=== PATIENT | male | born 1985 | race Caucasian/White ===

== ENCOUNTER 2023-01-22 13:42 | Outpatient (REF) | payer OTHER, SELFPAY ==
[2023-01-22 14:39] LABS: Amphetamine Screen Urine Not Detected (Not Detect); Barbiturates, Urine Not Detected (Not Detect); Benzodiazepines Screen Urine Not Detected (Not Detect); Cannabinoid Screen Urine Not Detected (Not Detect); Cocaine Screen Urine POSITIVE (Not Detect); Fentanyl, urine Not Detected (Not Detect); Opiate Screen Urine Not Detected (Not Detect); Phencyclidine Screen Urine Not Detected (Not Detect)
[2023-01-22 14:54] LABS: Alanine Aminotransferase 54 U/L (0-40); Albumin Level 4.8 g/dL (3.5-5.0); Alkaline Phosphatase 74 U/L (39-117); Anion Gap 14 (12-20); Aspartate Amino Transferase 24 U/L (5-37); Bilirubin Total 0.3 mg/dL (0.0-1.0); Blood Urea Nitrogen 15 mg/dL (9-16); Calcium 9.8 mg/dL (8.4-10.2); Carbon Dioxide 28 mmol/L (22-29); Chloride 106 mmol/L (96-108); Estimated Glomerular Filt Rate > 60; Ethanol < 10 mg/dL; Gamma Glutamyl Transpeptidase 57 U/L (11-51); Glucose Random 106 mg/dL (60-115); Potassium 4.5 mmol/L (3.3-5.1); Sodium 143 mmol/L (135-145); Total Protein 7.6 g/dL (6.5-8.0)
== END 2023-01-22 13:43 | disposition home or self-care (01) ==
LOC: HO.LAB 13:42
PROVIDERS: Visit Provider Nurse Practitioner Psychiatric/Mental Health
DX: F10.20 Alcohol dependence, uncomplicated (principal); F33.1 Major depressive disorder, recurrent, moderate
CPT/HCPCS: 80053; 80307; 82077; 82977; 85610

== ENCOUNTER 2023-01-30 09:00 | Outpatient (RCR) | payer OTHER, SELFPAY ==
[2023-01-19 12:04] VITALS: BP 122/80; PULSE 80; TEMP 36.9
[2023-01-19 12:07] VITALS: BMI 25.5
--- NOTE | 2023-01-19 12:36 | PC.ADMIT ---
Patient is a 37 year old male who's therapist referred him to [facility] d/t increased stresses in relation to his marriage, 2 small children ages 2-3, and work related stresses. Patient struggling with increase in ETOH use recently to cope with how he is feeling and reports drinking 5-10 ETOH nips daily. Reports he abstained from use for the past 3 months however relapsed and reports his last drink was on 01/05/23. Denied withdrawal sxs and denied any history of withdrawal sxs. Patient also reports he used cocaine over the weekend. He became tearful and stated it was, dumb for him to do this feeling guilt and shame. He stated he uses about 5 times a year. Patient reports being in [facility] 20 years ago and found it helpful. He wants to work on his sobriety, stress reduction, and sxs of depression. Patient stated he is going on short term disability from work d/t his symptoms. Patient is alert and oriented x4. Calm and cooperative. Presented with depressed mood and affect, tearful at times. Denied SI or thoughts to harm himself. Patient given a copy ofhis safety plan if needed and I reviewed the plan with him. Patient denied being on any prescription medications.
--- NOTE | 2023-01-19 13:07 | HO.PS.ADMBH ---
[facility] Date of Service: 01/19/23 Chief Complaint: anxiety,depression,AUD Sources of Information: patient interviewed, chart reviewed and crisis/core team assessment reviewed HPI Medical Problems Affecting Mental Status: No Narrative: Mr. Aguilar is a 37-year-old male, referred to [facility] by his therapist. Patient has been experiencing difficulties in his marital relationship, difficulties raising his 2 young children. Situation has caused increased symptoms of depression and anxiety, as well as increased drinking on his part, with increased arguing at home. Patient states he would like to get help in learning how to manage his emotions, as well as stop drinking alcohol. Patient reports he has felt ?out of control ?since the of his 2 children, ages 2 and 3. Describes current mood as nervous?. Was working with a psychiatric provider within the past year, she recommended stopping his medications due to his heavy daily alcohol use. He states he is no longer working with provider. Patient reports he has been drinking heavily, 5-10 nips of vodka daily. Reports last drink was on 01/05/2023. He states his explosive temper, low stress tolerance, and heavy drinking have caused problems in his life, and he is currently on leave from work, in order to focus on his own recovery. Participated in this program almost 20 years ago. Lived in [facility] program for 1 year in 2005. Has had periods of sobriety for 1 year at a time, 6 months ago he was able to stop drinking for 3 months. He is not currently attending any 12 step recovery type meetings, although he has gone to several AA meetings in the past. He reports he is not currently craving alcohol, but he has at times since stopping over the past several weeks. Reports current symptoms of feeling hopeless and helpless, poor sleep, decreased energy, poor frustration tolerance, irritability, anxiety. Denies SI/HI, AH,VH. States that he had anger issues as a child, and he feels they have resurfaced in his marriage. Treated for ADD outpatient here in 1995, history of becoming explosive when angry as a child. Denies any physical abuse states he does not harm his and children in any way physically. He is fearful however that his arguing with his spouse could possibly be affecting the children, and wishes to learn how to handle his emotions more effectively, and had a communicate calmly. He has been using edible cannabis, several times weekly. Past Psychiatric History[place] [facility] [place]. [facility] [place] as a teen, with dx ADD [facility] long-term treatment x1 year, 2005. Most recent psychiatric provider Ibis Nielson, has none currently. Therapist: LISA Karimi No IP Med trials: Latiaal, Nancy, (recently stopped by prescriber due to excessive alcohol intake),Lexapro. Medical Evaluation Reviewed: Yes [facility] Medical History No known health problems Ruptured spleen Family History: No known substance use or psychiatric issues in family history. Social History: Raised by both parents, 1 older brother, 1 younger brother. Graduated high school, college. , 2 children, ages 2 and 3. 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 Substance History: Edible cannabis, several times weekly, current. Vodka daily since age 16 or 17. Most recently was using 5-10 minutes daily, last drink to [id number]. Current cocaine use. Lived in residential treatment facility x1 year in 2005. Trauma History: none Diagnostics Vital Signs (24Hr): Vital Signs - 24 hr 01/19/23 12:04 Temperature 98.4 F Pulse Rate 80 Blood Pressure 122/80 BMI result Body Mass Index 25.5 Meds/Allergies Meds Home Medications Medication Instructions Recorded Confirmed Type No Known Home Meds 01/19/23 01/19/23 History Allergies Allergies Allergy/AdvReac Type Severity Reaction Status Date / Time aspirin [ASPIRIN] Allergy Unknown UNKNOWN Verified 01/19/23 12:04 penicillin V Allergy Unknown Unknown Verified 01/19/23 12:04 Penicillins [PENICILLINS] Allergy Unknown RASH Verified 01/19/23 12:04 Mental Status Exam Mental Status Exam Narrative: Well-developed, well-nourished male, NAD. No SI. No perceptual disturbances. No tics or tremors, no cogwheeling. Normal ambulation. Full range of affect. Able to follow conversation without difficulty. Patient Appearance: Well Grooomed and Appropriate Patient Orientation: Person, Place and Situation Level of Consciousness: Appropriate and Alert Patient Behavior: Appropriate, Anxious and Good Eye Contact Mood Description: Depressed and Anxious Affect Description: Depressed and Anxious Patient Cognition Impaired: No Ability to Follow Directions: Good Speech Pattern: Clear and Appropriate Memory Description: Intact Hallucinations: None Delusions: Not Present Thought Process: Intact Thought Content: positive for Intact Depressive Symptoms: Increased Anxiety, Crying Spells, Loss of Int. in Activity, Feelings of Worthlessness, Hopelessness, Feelings of Guilt and Unhappiness Judgement: Fair Assessment & Plan Assessment & Plan (1) Alcohol dependence, uncomplicated: Status: Acute Code(s): F10.20 - Alcohol dependence, uncomplicated Assessment and Plan: Patient has longstanding history of alcohol use disorders since age 17-18. Has been in treatment in the past. Has periods of abstinence for months at a time. Recently has been having increased consumption, feels this is related to increased stress in the home. Last drink was 01/05/2023. Has gone to several alcoholics anonymous meetings, otherwise in no current treatment. Has never tried medications for alcohol use disorder. Discussion was had regarding various medication options, including naltrexone, Campral, Antabuse. A review of each medication, including risks and benefits, side effects both small and more severe, indications of use for each medication. Patient would like to speak with his before deciding to taking medication for alcohol use at this time. Initial discussion did discuss possibility of higher level of care of treatment if indicated, as well as substance use groups here, recovery coaching. Patient did not report using other substances at this time. However, UDS was positive for cocaine today. Patient became tearful when meeting with program RN regarding this. Expresses shame and embarrassment, would like to focus on abstinence. This will be explored further with patient during subsequent visits. (2) Major depressive disorder, recurrent episode, moderate with anxious distress: Status: Acute Code(s): F33.1 - Major depressive disorder, recurrent, moderate (3) ADD (attention deficit disorder): Status: Acute Code(s): F98.8 - Other specified behavioral and emotional disorders with onset usually occurring in childhood and adolescence Assessment and Plan: per chart review, patient received treatment here as outpatient for ADD in 1995. He reports difficulty managing his emotions, angry outburst since childhood. Will provide screening tools for both bipolar disorder and ADD, to be completed by patient, and reviewed together. Plan 1. Administer screening tools. 2. Continue with current [facility] plan of care. 3. Follow-up as per protocol. Patient educated on: diagnosis, medication risk/benefits, substance abuse and therapeutic strategies Informed Consent: understands Reason for continued partial hosp. stay Substantial Risk for: rapid decompensation and med/psych decompensation Certification I certify that partial hospital treatment is medically necessary due to the symptoms and problems resulting from the patient's mental illness and the failure to treat the patient at the partial hospital level of care would likely result in the patient requiring inpatient psychiatric care which could not be prevented at a less intensive level of care. Time Spent With Patient Time: Total time managing care of this patient today __60__ minutes.
[2023-01-19 13:16] LABS: Amphetamine Screen Urine Not Detected (Not Detect); Barbiturates, Urine Not Detected (Not Detect); Benzodiazepines Screen Urine Not Detected (Not Detect); Cannabinoid Screen Urine POSITIVE (Not Detect); Cocaine Screen Urine POSITIVE (Not Detect); Fentanyl, urine Not Detected (Not Detect); Opiate Screen Urine Not Detected (Not Detect); Phencyclidine Screen Urine Not Detected (Not Detect)
--- NOTE | 2023-01-21 16:44 | P.PNPSP_ITS ---
Subjective Subjective Date of Service: 01/21/23 Reason For Visit: anxiety,depression,AUD Medical Problems Affecting Mental Status: No Interim History: Describes mood as anxiuos, depressed . No alcohol use, no cocaine use. Completed screening tools; ADHD self report scale, MDQ. No SI, feels safe. Finding groups helpful. Continues feeling overwhelmed at home with and 2 young children. Continues unsure regarding taking medications. Attending Groups: Yes Review of Systems Acute medical concerns: No Medical Review of Systems: unchanged Review of Systems Review of Systems Yes all other systems are reviewed and are negative Constitutional: Reports no additional constitutional complaints Mental Status Exam Mental Status Exam Narrative: NAD. No SI. Patient Appearance: Well Grooomed and Appropriate Patient Orientation: Person, Place and Situation Level of Consciousness: Appropriate and Alert Patient Behavior: Appropriate, Anxious and Good Eye Contact Mood Description: Depressed and Anxious Affect Description: Depressed and Anxious Patient Cognition Impaired: No Ability to Follow Directions: Good Speech Pattern: Clear and Appropriate Memory Description: Intact Hallucinations: None Delusions: Not Present Thought Process: Intact Thought Content: positive for Intact Depressive Symptoms: Increased Anxiety, Crying Spells, Loss of Int. in Activity, Feelings of Worthlessness, Hopelessness, Feelings of Guilt and Unhappiness Judgement: Fair Diagnostics Vital Signs (24Hr): BMI result Body Mass Index 25.5 Assessment & Plan Assessment & Plan (1) Alcohol dependence, uncomplicated: Status: Acute Code(s): F10.20 - Alcohol dependence, uncomplicated Assessment and Plan: Describes mood as anxiuos, depressed . Continues feeling overwhelmed at home with and 2 young children. Continues to argue with . No SI, feels safe. Finding groups helpful. No alcohol use, no cocaine use. Denies current withdrawals or cravings. Discussed use pattern in detail. Has used alcohol almost daily, and cocaine approximately 10 times per year. Completed screening tools; ADHD self report scale, MDQ. Scores on both screening tools show some sx of each disorder reveal some overlapping sx. Does acknowledge feeling irritable, starting fights with others, and getting distracted easily. Also has difficulty completing repetitive work, talking excessively in social situations, with some difficulty in getting started on tasks, wrapping up final details on projects. However, also relates some of these behaviours to times when he has been using alcohol and cocaine. Discussed differences between a substance induced mood disorder, bipolar disorder, and ADHD. Patient recalls being trialled on ritalin as a child without success (developed tics), and later Wellbutrin. Discussed various medication options, including guanfacine, clonidine, Wellbutrin, trileptal. Also discussed medications for alcohol use and cocaine use, naltrexone, campral, topomax. Discussion included indications of use, side effects both benign and more serious, as well as alternatives. He is not willing to trial any medications at this time. Patient was encouraged to discuss the medications listed with his spouse later today, as originally he stated he wanted to do this. (2) Major depressive disorder, recurrent episode, moderate with anxious distress: Status: Acute Code(s): F33.1 - Major depressive disorder, recurrent, moderate (3) ADD (attention deficit disorder): Status: Acute Code(s): F98.8 - Other specified behavioral and emotional disorders with onset usually occurring in childhood and adolescence Plan 1. Obtain labs. 2. Continue to follow current [facility] plan of care. 3. Follow-up as per protocol. Patient educated on: diagnosis, medication risk/benefits, substance abuse and therapeutic strategies Informed Consent: understands Reason for contiued partial hosp. stay Substantial Risk for: inability to function, rapid decompensation and med/psych decompensation Certification I certify that partial hospital treatment is medically necessary due to the symptoms and problems resulting from the patient's mental illness and the failure to treat the patient at the partial hospital level of care would likely result in the patient requiring inpatient psychiatric care which could not be prevented at a less intensive level of care. Total time managing care of this patient today ___20_ minutes. Discharge Plan Discharge Attending provider: Naif Esparza Medications: No Action No Known Home Meds Stand Alone Forms: Patient Portal Discharge page Patient Education: Naltrexone (By mouth)
--- NOTE | 2023-01-23 08:30 | HO.PHP ---
The clients case was reviewed and opened in clinical team
--- NOTE | 2023-01-23 13:00 | HO.PHP ---
I met with Yuniel to discuss his positive screen for cocaine and explore plans for moving forward. He became tearful and admits to having used intermittently. He states that he hasn't used in a couple of days. We explored reasons he uses eg feeling overwhelmed and needing a break , energy, and explored how his use impacts his life. He stated that he knows that his use id s the major reason that he is not helping his and that their communication is poor. He states that she does not know that he uses and he feels guilt. He states that he believes that if he continues to act the way he is they will get . We explored what he can control now. I asked him if he wanted a referral for a substance program. He states that he does have an intake scheduled next . He wants to stay here in [place] and focus on relapse prevention during the groups.
--- NOTE | 2023-01-28 12:56 | HO.PHPPROGNO ---
Subjective Subjective Date of Service: 01/28/23 Reason For Visit: anxiety,depression,AUD Medical Problems Affecting Mental Status: No Interim History: Continues with anxiuos, depressed mood. Tearful. Has been using cocaine daily for past 3 years. Wants referral to substance use treatment. Willing to try medication for cocaine cravings. Remains abstinent from alcohol, reports last drink was 01/05/23. No SI, no safety concerns. Medication Compliance: Yes Attending Groups: Yes Review of Systems Acute medical concerns: No Medical Review of Systems: unchanged Review of Systems Review of Systems Yes all other systems are reviewed and are negative Constitutional: Reports no additional constitutional complaints Mental Status Exam Mental Status Exam Narrative: Tearful throughout encounter. No SI, feels safe. Patient Appearance: Appropriate Patient Orientation: Person, Place, Time and Situation Level of Consciousness: Appropriate and Alert Patient Behavior: Anxious, Good Eye Contact and Crying Mood Description: Depressed and Anxious Affect Description: Depressed and Anxious Patient Cognition Impaired: No Ability to Follow Directions: Good Speech Pattern: Clear and Appropriate Memory Description: Intact Hallucinations: None Delusions: Not Present Thought Process: Intact Thought Content: positive for Intact Depressive Symptoms: Increased Anxiety, Crying Spells, Loss of Int. in Activity, Feelings of Worthlessness, Hopelessness, Feelings of Guilt and Unhappiness Judgement: Fair Diagnostics Vital Signs (24Hr): BMI result Body Mass Index 25.5 Assessment & Plan Assessment & Plan (1) Alcohol dependence, uncomplicated: Status: Acute Code(s): F10.20 - Alcohol dependence, uncomplicated Assessment and Plan: Continues with anxiuos, depressed mood. Tearful. Has been using cocaine daily for past 3 years. Says he cannot stop on his own, and is asking for help. Wants referral to substance use treatment. Discussed various levels of care, including residential, IOP, medications, therapy. Willing to try medication for cocaine cravings. Remains abstinent from alcohol, reports last drink was 01/05/23. No SI, no safety concerns. (2) Major depressive disorder, recurrent episode, moderate with anxious distress: Status: Acute Code(s): F33.1 - Major depressive disorder, recurrent, moderate (3) Cocaine use disorder, severe, dependence: Status: Acute Code(s): F14.20 - Cocaine dependence, uncomplicated Plan 1. Continue with current [facility] plan of care. 2. Patient has intake scheduled with [facility] substance use program. 3. Start topomax 25mg daily. 4. Recommend f[place] [facility] [place] [facility] 5. Information provided regarding several residential and online IOP programs, including [facility], [facility], [facility]. 6. Follow-up as per protocol. Patient educated on: diagnosis, medication risk/benefits, substance abuse and therapeutic strategies Informed Consent: understands Reason for contiued partial hosp. stay Substantial Risk for: inability to function and rapid decompensation Certification I certify that partial hospital treatment is medically necessary due to the symptoms and problems resulting from the patient's mental illness and the failure to treat the patient at the partial hospital level of care would likely result in the patient requiring inpatient psychiatric care which could not be prevented at a less intensive level of care. Total time managing care of this patient today ___30_ minutes. Discharge Plan Discharge Attending provider: Naif Esparza Medications: New topiramate [Topamax] 25 mg tablet 25 mg PO DAILY Qty: 30 0RF Stand Alone Forms: Patient Portal Discharge page Patient Education: Naltrexone (By mouth)
--- NOTE | 2023-01-30 13:45 | P.PNPSP_ITS ---
Subjective Subjective Date of Service: 01/30/23 Reason For Visit: anxiety,depression,AUD Medical Problems Affecting Mental Status: No Interim History: Less depressed. Anxious affect. Continues abstinent from alcohol use. Continues with daily cocaine use, has reduced amount. No SI, no safety concerns. Medication Compliance: Yes Side effects from medications: No Attending Groups: Yes Review of Systems Acute medical concerns: No Medical Review of Systems: unchanged Review of Systems Review of Systems Yes all other systems are reviewed and are negative Constitutional: Reports no additional constitutional complaints Mental Status Exam Mental Status Exam Narrative: Tearful No SI, feels safe. Patient Appearance: Appropriate Patient Orientation: Person, Place, Time and Situation Level of Consciousness: Appropriate and Alert Patient Behavior: Anxious, Good Eye Contact and Crying Mood Description: Appropriate Affect Description: Appropriate and Anxious Patient Cognition Impaired: No Ability to Follow Directions: Excellent Speech Pattern: Clear and Appropriate Memory Description: Intact Hallucinations: None Delusions: Not Present Thought Process: Intact Thought Content: positive for Intact Depressive Symptoms: Feelings of Guilt Judgement: Good Diagnostics Vital Signs (24Hr): BMI result Body Mass Index 25.5 Assessment & Plan Assessment & Plan (1) Major depressive disorder, recurrent episode, moderate with anxious distress: Status: Acute Code(s): F33.1 - Major depressive disorder, recurrent, moderate Assessment and Plan: Less depressed. Feels his depression is much improved, managable, has found groups helpful. Anxious affect. Tearful during encounter. Continues abstinent from alcohol use. Continues with daily cocaine use, has reduced amount. Says used 1/4 regular daily amount yesterday. States that he wants to stop. Encouraged to tell his , and discuss treatment options with her. We discussed / reviewed various treatment options, including [facility] services, recovery coaching, 12-step and other mutual support type groups, medications, IOP's, inpatient and residential treatment services. Discussed harm reduction. Has started taking topirimate for cravings. No SI, no safety concerns. (2) Alcohol dependence, uncomplicated: Status: Acute Code(s): F10.20 - Alcohol dependence, uncomplicated (3) Cocaine use disorder, severe, dependence: Status: Acute Code(s): F14.20 - Cocaine dependence, uncomplicated Plan 1. Patient appears stable for discharge from [facility] at this time. 2. patient encouraged to contact [facility] for substance use outpatient treatment. 3. patient to follow-up with outpatient providers going forward. Patient educated on: diagnosis, medication risk/benefits, substance abuse and therapeutic strategies Informed Consent: understands Reason for contiued partial hosp. stay Substantial Risk for: stable for discharge Certification I certify that partial hospital treatment is medically necessary due to the symptoms and problems resulting from the patient's mental illness and the failure to treat the patient at the partial hospital level of care would likely result in the patient requiring inpatient psychiatric care which could not be prevented at a less intensive level of care. Total time managing care of this patient today ___20_ minutes. Discharge Plan Discharge Attending provider: Naif Esparza Medications: New topiramate [Topamax] 25 mg tablet 25 mg PO DAILY Qty: 30 0RF Stand Alone Forms: Patient Portal Discharge page Patient Education: Naltrexone (By mouth), Depression (DC), Alcohol Use Disorder (DC)
--- NOTE | 2023-01-30 15:15 | HO.PHP ---
The client was given numbers for recovery programs . He refused a referral.
--- NOTE | 2023-02-06 11:27 | HO.PHP ---
A message was left for the clients therapist Rosie LIPSCOMB re client participation in PHP and dc info
== END 2023-01-30 23:59 | disposition home or self-care (01) ==
LOC: HO.PHPA 09:00
PROVIDERS: Nurse Practitioner Psychiatric/Mental Health; Visit Provider Psychiatry & Neurology Psychiatry
DX: F33.1 Major depressive disorder, recurrent, moderate (principal); F98.8 Other specified behavioral and emotional disorders with onset usually occurring in childhood and adolescence; F10.20 Alcohol dependence, uncomplicated
CPT/HCPCS: 80307; 90791; 90853

== ENCOUNTER 2024-02-29 09:30 | Outpatient (RCR) | payer OTHER, SELFPAY ==
--- NOTE | 2024-02-16 21:39 | HO.PS.ADMBH ---
[facility] Date of Service: 02/16/24 Chief Complaint: anxiety,depression,AUD Sources of Information: patient interviewed, chart reviewed and crisis/core team assessment reviewed HPI Narrative: Patient is a 38 yo male, employed, with a history of depression, anxiety, polysubstance abuse, ADHD, who self-referred to [facility] for struggles with addiction and mental health issues in the context of marriage problems and other psychosocial stressors including ongoing cocaine dependence and alcohol abuse. He has a history of psychiatric treatment including one remote [facility] admission and residential substance abuse treatment in 2005, but currently is not on medication and has no outpatient treaters. Past Psychiatric History: [facility] 2005. [facility] outpatient as a teen, with dx ADD [facility] long-term treatment x1 year, 2005. Most recent psychiatric provider Ibis Nielson, has none currently. Therapist: LISA Karimi No IP Med trials: Lamictal, Nancy, (recently stopped by prescriber due to excessive alcohol intake),Lexapro. [facility] Medical History (Updated 02/17/24 @ 12:25 by Kesha Dobbins MD) History of gout Ruptured spleen Surgical History (Updated 02/17/24 @ 12:00 by Lorrie Morales RN) H/O kidney removal Family History: No known substance use or psychiatric issues in family history. Social History: Raised by both parents, 1 older brother, 1 younger brother. Graduated high school, college. , 2 children, ages 2 and 3. 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 Trauma History: none Meds/Allergies Meds Home Medications ?Medication ?Instructions ?Recorded ?Confirmed ?Type allopurinol 300 mg tablet 300 mg PO DAILY 02/17/24 02/17/24 History Allergies Allergies Allergy/AdvReac Type Severity Reaction Status Date / Time aspirin [ASPIRIN] Allergy Unknown UNKNOWN Verified 01/19/23 12:04 penicillin V Allergy Unknown Unknown Verified 01/19/23 12:04 Penicillins [PENICILLINS] Allergy Unknown RASH Verified 01/19/23 12:04 Mental Status Exam Mental Status Exam Narrative: Alert, oriented, in no acute distress. Calm, cooperative, engaged. No psychomotor agitation or neurovegetative retardation. Eye contact maintained. Mood anxious, affect variable, mood congruent. Speech normal. Thought process linear, coherent. Thought content related to stressors, denies any helplessness, hopelessness or SI.? No aggressive ideation or HI. No paranoia or delusional content elicited. No evidence of psychosis. Insight and judgment fair but adequate. Assessment & Plan Assessment & Plan (1) Major depressive disorder, recurrent episode, moderate with anxious distress: Status: Acute Code(s): F33.1 - Major depressive disorder, recurrent, moderate (2) Other specified persistent mood disorders: Status: Acute Code(s): F34.89 - Other specified persistent mood disorders (3) Cocaine use disorder, severe, dependence: Status: Acute Code(s): F14.20 - Cocaine dependence, uncomplicated (4) ADHD, adult residual type: Status: Acute Code(s): F90.8 - Attention-deficit hyperactivity disorder, other type Plan Admit to PHP VS reviewed: abrefile; BP? bpm start Abilify 2.5 mg qd (1/2 tablet of 5 mg tab) for 4 days then increase to one tablet daily patient denies current use - pending UDS Routine lab work ordered EKG as indicated MassPat reviewed Continue to monitor as per protocol Patient educated on: diagnosis, medication risk/benefits and substance abuse Informed Consent: understands Reason for continued partial hosp. stay Substantial Risk for: inability to function, rapid decompensation and med/psych decompensation Certification I certify that partial hospital treatment is medically necessary due to the symptoms and problems resulting from the patient's mental illness and the failure to treat the patient at the partial hospital level of care would likely result in the patient requiring inpatient psychiatric care which could not be prevented at a less intensive level of care. Time Spent With Patient Time: Total time managing care of this patient today _60___ minutes.
[2024-02-17 12:04] VITALS: BP 129/96; PULSE 98; TEMP 37.4
[2024-02-17 12:06] VITALS: BMI 22.0
--- NOTE | 2024-02-17 14:00 | PC.ADMIT ---
Patient is a 38 year old male who self referred to PHP d/t increased depression, anxiety, irritability, an low frustration tolerance. Patient has a history of attending [facility] in the past and has found it helpful. Patient also struggling with cocaine use. He reports to this aligner typewriter that he has been using cocaine daily for the past few years and has cut down his use to 4-5 times a week. Last use 2 days ago. His goal is to not use cocaine at all. He reports he is from his and thinks substance use is a contributing factor along with having financial issues. He reports he spends a couple hundred dollars a week on cocaine. Discussed ways to stop using. He also plans to start talking about his use in group and getting support from others along with relapse prevention planning. Recommended he attend other support groups like AA to get more support. Patient reports he is on short term disability from work d/t MH symptoms since Thursday. He works for [employer] for the past 9 years. Patient is alert and oriented x4. Calm and cooperative. He presents with depressed mood and anxious affect. Denied SI, no HI. He was given a copy of his safety plan if needed. Medications reconciled with patient and patient's pharmacy. He is prescribed Allipurinal for history of Gout however has not started this medication.
--- NOTE | 2024-02-18 11:32 | HO.PHP ---
After group one, Yuniel noted that he was not feeling well and believes he has the stomach bug. Yuniel asked if it would be okay to leave for the day. [facility] staff informed him if he is not feeling well he is able to leave. [facility] staff assessed for safety. Yuniel reported no concerns around SI, plan or intent and voiced that he will be here tomorrow. [facility] staff member was receptive.
--- NOTE | 2024-02-18 15:32 | HO.PHP ---
Client's case has been opened and reviewed in treatment team.
[2024-02-18 16:17] LABS: Amphetamine Screen Urine Not Detected (Not Detect); Barbiturates, Urine Not Detected (Not Detect); Benzodiazepines Screen Urine Not Detected (Not Detect); Cannabinoid Screen Urine POSITIVE (Not Detect); Cocaine Screen Urine POSITIVE (Not Detect); Fentanyl, urine Not Detected (Not Detect); Opiate Screen Urine Not Detected (Not Detect); Phencyclidine Screen Urine Not Detected (Not Detect)
--- NOTE | 2024-02-19 10:14 | HO.PHP ---
[facility] staff member reached out to Yuniel due to him not showing up to program around 9:15 AM. A voicemail (VM) was left on Yuniel's phone encouraging him to contact the program back within a 15 minute time span. [facility] staff member informed him in the VM that if he does not return the phone call, she will have to reach out to his emergency contact and if the emergency contact is unable to get a hold of him, she will have to do a wellness check. [facility] staff member unfortunately did not receive a call back. Around 9:35 AM, [facility] staff member reached out to Yuniel again, leaving another VM stating that she will be initiating a call to his brother who is his emergency contact. [facility] staff member then reached out to the brother, Marty, who noted that he spoke with Yuniel yesterday and he sounded well but has not heard from him today. Marty mentioned that he is sure his brother is safe and probably slept in. Marty noted that he will try to contact him. [facility] staff was receptive and explored if he has where Yuniel is currently staying so she can initiate a wellness check if he is unable to get a hold of him. Marty was uncertain of the current address but noted he will contact Yuniel. Marty contacted [facility] staff member back around 10 AM stating that he tried calling Yuniel a couple times and was unable to get a hold of him. Marty did disclose that he spoke to Yuniel's to get the apartment he is currently staying at, which is [address] [place] [address]. [facility] staff member was receptive and disclosed she is going to initiate the wellness check. Marty asked [facility] staff member if she could call him back if his brother calls her. [facility] staff member noted that if she hears from Yuniel, she will encourage Yuniel to call him. Marty was receptive. [facility] staff member contacted [place] Dispatch to do a wellness check. [facility] staff member asked if they can advise Yuniel to contact the program once they come into contact with him and also have the dispatch team call back as well to let us know what the outcome was. Dispatcher Mike was receptive.
--- NOTE | 2024-02-19 14:13 | HO.PHP ---
[facility] staff member followed up with the police department around 11:15 AM to see if they had come into contact with Yuniel. Dispatcher Mike noted that they did come into contact with Yuniel and he was fine. Dispatcher Mike voiced that Yuniel disclosed he will contact the program. [facility] staff member was receptive. At 11:30 AM [facility] staff received a message from Fariba stating that Yuniel emailed her apologizing.
--- NOTE | 2024-02-19 23:46 | PM.EVENT ---
Event Note Date of Service: 02/22/24 Event Note: I spoke briefly with patient who was occupied with his children and was not a good time to speak. He reports that he is doing okay and denies any acute issues or concerns. He was agreeable to me calling backing over the weekend. Time Spent With Patient Time: Total time managing care of this patient today __5__ minutes.
--- NOTE | 2024-02-22 23:06 | P.PNPSP_ITS ---
Subjective Subjective Date of Service: 02/22/24 Reason For Visit: anxiety,depression,AUD Interim History: Things not so good Reports that a lot is going on with his . Also was out Thurs due to being sick and then his phone . Mood is been alright . Says SI has never been an issue . Denies having current cravings to cocaine but worries about cravings once he no longer has the structure of the program. He used a few days ago cant remember when . Sleep has been off and on . Appetite is okay. Anxiety is situational. Feels when he is alone he feels more likely to use, to deal with stress or boredom, but acknowledges it always makes me feel worse . He is open to trying amantadine for cravings and may help w adhd sx and impulsivity, as well as guanfacine for adhd sx and anxiety. Side effects from medications: No Attending Groups: Yes Review of Systems Acute medical concerns: No Mental Status Exam Mental Status Exam Narrative: Alert, oriented, in no acute distress. Calm, cooperative, engaged. No psychomotor agitation or neurovegetative retardation. Eye contact maintained. Mood anxious, affect variable, mood congruent. Speech normal. Thought process linear, coherent. Thought content related to stressors, denies any helplessness, hopelessness or SI.? No aggressive ideation or HI. No paranoia or delusional content elicited. No evidence of psychosis. Insight and judgment fair but adequate. Diagnostics Vital Signs (24Hr): BMI result Body Mass Index 22.0 Assessment & Plan Assessment & Plan (1) Major depressive disorder, recurrent episode, moderate with anxious distress: Status: Acute Code(s): F33.1 - Major depressive disorder, recurrent, moderate (2) Other specified persistent mood disorders: Status: Acute Code(s): F34.89 - Other specified persistent mood disorders (3) Cocaine use disorder, severe, dependence: Status: Acute Code(s): F14.20 - Cocaine dependence, uncomplicated (4) ADHD, adult residual type: Status: Acute Code(s): F90.8 - Attention-deficit hyperactivity disorder, other type (5) Alcohol dependence, uncomplicated: Status: Acute Code(s): F10.20 - Alcohol dependence, uncomplicated Plan start amantadine 100 mg qd (start on 11/24 tablet =50 mg/d for 2-3 days before increasing dose to 100 mg qd) increase Abilify to 2.5 mg qhs for 2 nights then increase to 5 mg qhs will plan to start guanfacine ER 1 mg qd-bid as tolerated - will hold off until review amantadine Patient educated on: diagnosis, medication risk/benefits and substance abuse Informed Consent: understands Reason for contiued partial hosp. stay Substantial Risk for: inability to function, rapid decompensation and med/psych decompensation Certification I certify that partial hospital treatment is medically necessary due to the symptoms and problems resulting from the patient's mental illness and the failure to treat the patient at the partial hospital level of care would likely result in the patient requiring inpatient psychiatric care which could not be prevented at a less intensive level of care. Total time managing care of this patient today __30__ minutes. Discharge Plan Discharge Attending provider: Kesha Dobbins Additional Instructions: Yuniel's OP therapy intake is scheduled for March 02, 2024 at 11 AM with Paul Becerra at [address] [place] [address]. Yuniel's med management appointment is scheduled for April 01, 2024 at 9 AM via telehealth with Garret Campbell. Medications: New aripiprazole 5 mg tablet 5 mg PO BEDTIME Qty: 14 0RF amantadine HCl 100 mg tablet See Rx Instructions .ROUTE .COMPLEX Qty: 30 0RF Rx Instructions: start 1/2 tablet daily for 4 days then increase to 1/2 tablet twice daily for 4 days then increase to 1 tablet twice daily Changed guanfacine 1 mg tablet extended release 24 hr 1 mg PO DAILY Qty: 30 0RF No Action allopurinol 300 mg tablet 300 mg PO DAILY Patient Comments: Patient has not started this medication. Reports incidence of gout two times a year on average. Stand Alone Forms: Patient Portal Discharge page Patient Education: Depression (DC) Print Language: Fijian Telehealth Telehealth Location of provider rendering services: other (private office) Location of patient: other ([facility]) Patient Identification confirmed using: Name, : Yes Telehealth method: video Patient verbally consented to treatment: Yes
--- NOTE | 2024-02-25 08:14 | HO.PHP ---
[facility] staff member faxed over the referral for med management and OP therapy to [facility] for Yuniel Aguilar. PHP staff member is awaiting the scheduled appointment dates and times.
--- NOTE | 2024-02-25 12:41 | PC.NURSE ---
I asked Yuniel if her could complete a COOPER as we agreed upon last week. He asked if this is a requirement. I told him this was voluntary. He stated why bother as it is going to be positive. He also stated he did not want to do another COOPER as he has a high deductible insurance plan. He stated he used Cocaine yesterday. I asked him what his goal was in relation to cocaine use and he stated his goal is to stop using. I made some suggestions on how he could accomplish this asking him if his brother could hold on to his money to help him stay sober and he stated he did not know if he wanted to get his brother involved. I asked him if anyone else he trusted could hold on to his money for a while to help him with his goal of sobriety. He stated he did not know. Education provided regarding medical complications from cocaine use. I asked him if he could talk about relapse in group and come up with a relapse prevention plan with group support to help him not use. I told him I would review with Dr Dobbins. [facility] staff is aware including Dr Dobbins.
--- NOTE | 2024-02-25 14:13 | HO.PHPPROGNO ---
Subjective Subjective Date of Service: 02/25/24 Reason For Visit: anxiety,depression,AUD Interim History: Patient seen for follow-up, anticipating discharge at the end of program today.? Patient reports last using 2 nights ago, It's very clear to me I am more irritable, depressed and stressed when I use . Reports his depression at a 8/10 and irritability was at a 10/10 when he uses. Presently depression and irritability severity at a 2/10 and 1/10 respectively. He cotninues on Abilify at 5 mg qd which he feels is helpful. He is eager to start on amantadine but has not gotten himself over to pick it up still. He is agreeable to hold off if he has any problems starting on the medication and plans to follow up with Dr. Campbell next month. Reports no acute issues or concerns. Medication compliant, medications well-tolerated. Denies any adverse effects.? Mood is stable.? Denies any hopelessness or SI. Denies thoughts of harming self or others at this time. Denies any aggressive ideation or HI. Denies any paranoia or AH or VH. Sleep, appetite, energy stable. Medication Compliance: Yes Side effects from medications: No Attending Groups: Yes Review of Systems Acute medical concerns: No Mental Status Exam Mental Status Exam Narrative: Alert, oriented, in no acute distress. Calm, cooperative, engaged. No psychomotor agitation or neurovegetative retardation. Eye contact maintained. Mood anxious, affect variable, mood congruent. Speech normal. Thought process linear, coherent. Thought content related to stressors, denies any helplessness, hopelessness or SI.? No aggressive ideation or HI. No paranoia or delusional content elicited. No evidence of psychosis. Insight and judgment fair but adequate. Diagnostics Vital Signs (24Hr): BMI result Body Mass Index 22.0 Assessment & Plan Assessment & Plan (1) Major depressive disorder, recurrent episode, moderate with anxious distress: Status: Acute Code(s): F33.1 - Major depressive disorder, recurrent, moderate (2) Other specified persistent mood disorders: Status: Acute Code(s): F34.89 - Other specified persistent mood disorders (3) Cocaine use disorder, severe, dependence: Status: Acute Code(s): F14.20 - Cocaine dependence, uncomplicated (4) ADHD, adult residual type: Status: Acute Code(s): F90.8 - Attention-deficit hyperactivity disorder, other type Plan Discharge from [facility] pending start on amantadine 100 gm qd guanfacine ER 1 mg qd continue Abilify 5 mg qd Continue regular medications Will defer further medication management to outpatient provider Safety plan reviewed Patient educated on: diagnosis, medication risk/benefits and substance abuse Informed Consent: understands Reason for contiued partial hosp. stay Substantial Risk for: stable for discharge and rapid decompensation Certification I certify that partial hospital treatment is medically necessary due to the symptoms and problems resulting from the patient's mental illness and the failure to treat the patient at the partial hospital level of care would likely result in the patient requiring inpatient psychiatric care which could not be prevented at a less intensive level of care. Total time managing care of this patient today _30___ minutes. Discharge Plan Discharge Attending provider: Kesha Dobbins Additional Instructions: Yuniel's OP therapy intake is scheduled for March 02, 2024 at 11 AM with Paul Becerra at [address] [place] [address]. Yuniel's med management appointment is scheduled for April 01, 2024 at 9 AM via telehealth with Garret Campbell. Medications: New aripiprazole 5 mg tablet 5 mg PO BEDTIME Qty: 14 0RF amantadine HCl 100 mg tablet See Rx Instructions .ROUTE .COMPLEX Qty: 30 0RF Rx Instructions: start 1/2 tablet daily for 4 days then increase to 1/2 tablet twice daily for 4 days then increase to 1 tablet twice daily Changed guanfacine 1 mg tablet extended release 24 hr 1 mg PO DAILY Qty: 30 0RF No Action allopurinol 300 mg tablet 300 mg PO DAILY Patient Comments: Patient has not started this medication. Reports incidence of gout two times a year on average. Stand Alone Forms: Patient Portal Discharge page Patient Education: Depression (DC) Print Language: Mauritian
--- NOTE | 2024-02-25 15:56 | HO.PHP ---
[facility] staff received a voicemail from [facility] with Amor scheduled appointment times. Yuniel's OP therapy intake is scheduled for March 02, 2024 at 11 AM with Paul Becerra at [address] [place] [address]. Yuniel's med managment appointment is scheduled for April 01, 2024 at 9 AM via telehealth with Garret Campbell.
--- NOTE | 2024-02-25 16:15 | HO.PHP ---
[facility] staff member met with Yuniel who expressed concerns around how information was expressed to him by another staff member. [facility] staff member encouraged Yuniel to speak with this staff member around his concerns to try to resolve the situation. Yuniel continued to voice his frustration, in which the [facility] staff member shifted the conversation to focusing on what he can work on currently while in the program. Yuniel feels as though he is addressing his substance use and talking about it. [facility] staff member acknowledged and encouraged him to further explore ways he can work on reducing his use and creating a concrete plan. [facility] staff disclosed he can also do that in regards to his mental health. Yuniel was receptive. Yuniel was able to regulate and return to group.
== END 2024-02-29 23:59 | disposition home or self-care (01) ==
LOC: HO.PHPA 09:30
PROVIDERS: Visit Provider Psychiatry & Neurology Psychiatry
DX: F33.1 Major depressive disorder, recurrent, moderate (principal); F34.89 Other specified persistent mood disorders; F90.8 Attention-deficit hyperactivity disorder, other type; F14.20 Cocaine dependence, uncomplicated; Z79.899 Other long term (current) drug therapy
CPT/HCPCS: 80307; 90791; 90853

== ENCOUNTER 2024-12-29 08:18 | Emergency (ER) | payer OTHER, SELFPAY ==
--- NOTE | ~2024-12-29 | XR_ITS ---
EXAMINATION: XR HUMERUS, LEFT CLINICAL INFORMATION: fall, pain COMPARISON: None available. TECHNIQUE: AP and lateral views of the left humerus. FINDINGS: Longitudinally oriented superolateral radial head fracture, with approximately 2 mm of articular step-off. Elbow joint effusion. No dislocation. There is anatomical alignment. The humerus is intact without fracture. No discrete soft tissue abnormalities. Imaged shoulder joint appears normal. XR/XR humerus LT IMPRESSION: 1. Minimally displaced intra-articular radial head fracture. 2. Humerus appears intact. Electronically signed by: Garret Horan MD 12/29/2024 08:53 AM [facility] [place]
--- NOTE | ~2024-12-29 | XR_ITS ---
EXAMINATION: XR WRIST, LEFT XR FOREARM, LEFT CLINICAL INFORMATION: fall , pain. COMPARISON: None available. TECHNIQUE: PA, lateral, and oblique views of the left wrist. PA and lateral views of the left forearm. FINDINGS: The wrist demonstrates no fracture, dislocation, or suspicious bone lesion. Normal alignment. Carpal rows intact. Mild narrowing of the radiocarpal joint. Mild negative ulnar variance. No significant arthritic change. The left forearm demonstrates a longitudinally oriented minimally displaced radial head fracture which appears intra-articular along the lateral margin of the articular surface. There is a elbow joint effusion. Remainder of the left forearm is intact. Soft tissues appear normal. XR/XR forearm LT 2V IMPRESSION: 1. Intra-articular radial head fracture, minimally displaced. Elbow joint effusion. 2. No fracture or dislocation within the wrist. Electronically signed by: Garret Horan MD 12/29/2024 08:51 AM [facility]
--- NOTE | ~2024-12-29 | XR_ITS ---
EXAMINATION: XR WRIST, LEFT XR FOREARM, LEFT CLINICAL INFORMATION: fall , pain. COMPARISON: None available. TECHNIQUE: PA, lateral, and oblique views of the left wrist. PA and lateral views of the left forearm. FINDINGS: The wrist demonstrates no fracture, dislocation, or suspicious bone lesion. Normal alignment. Carpal rows intact. Mild narrowing of the radiocarpal joint. Mild negative ulnar variance. No significant arthritic change. The left forearm demonstrates a longitudinally oriented minimally displaced radial head fracture which appears intra-articular along the lateral margin of the articular surface. There is a elbow joint effusion. Remainder of the left forearm is intact. Soft tissues appear normal. XR/XR wrist LT 2V IMPRESSION: 1. Intra-articular radial head fracture, minimally displaced. Elbow joint effusion. 2. No fracture or dislocation within the wrist. Electronically signed by: Garret Horan MD 12/29/2024 08:51 AM [facility]
[2024-12-29 08:23] VITALS: BP 132/86; PULSE 97; RESP 18; TEMP 37.1; O2SAT 99; BMI 23.7
--- NOTE | 2024-12-29 08:33 | ED_ITS ---
HPI - Extremity Problem General Chief complaint: Extremity Injury, Upper Stated complaint: l arm inj fall Time Seen by Provider: 12/29/24 08:29 Source: patient Mode of arrival: ambulatory Limitations: no limitations History of Present Illness ED Provider: Nilda Thompson PA-C HPI Narrative: 39 yo male presents to the ER for evaluation of left arm pain after he slipped and fell on the bottom steps of his home walking outside today. He fell on an outstretched hand on his left side. He did not hit his head or lose consciousness. He reports pain in the left forearm and left elbow with flexion. He has no shoulder pain. No chest pain, abdominal pain, LE pain. No numbness or tingling. no weakness. MD Complaint: extremity pain and joint pain Onset (ago): hour(s) Pain Consistency: constant Location: left, upper extremity and elbow Severity scale (1-10): 6 Quality: aching Radiation: proximal Relieving factors: immobilization Exacerbating factors: range of motion Associated symptoms: denies other symptoms Related Data Home Medications ?Medication ?Instructions ?Recorded ?Confirmed allopurinol 300 mg tablet 300 mg PO DAILY 02/17/24 02/17/24 Previous Rx's ?Medication ?Instructions ?Recorded aripiprazole 5 mg tablet 5 mg PO BEDTIME as directed #14 02/16/24 tabs amantadine HCl 100 mg tablet See Rx Instructions .Route 02/22/24 .COMPLEX #30 tabs guanfacine 1 mg tablet,extended 1 mg PO DAILY as directed #30 tabs 02/25/24 release 24 hr Allergies Allergy/AdvReac Type Severity Reaction Status Date / Time aspirin [ASPIRIN] Allergy Unknown UNKNOWN Verified 12/29/24 08:25 penicillin V Allergy Unknown Unknown Verified 12/29/24 08:25 Penicillins [PENICILLINS] Allergy Unknown RASH Verified 12/29/24 08:25 Review of Systems Review of Systems: Yes all other systems are reviewed and are negative PMFSH Past Medical History Medical History (Updated 12/29/24 @ 09:23 by LILY Smith) History of gout Ruptured spleen Surgical History (Updated 02/17/24 @ 12:00 by Lorrie Morales RN) H/O kidney removal Social History Social History Household Members: None Patient Tobacco Use Status: Former Tobacco user Advance Directives: No Advance Directives Information Provided: Yes Do you have a plan to hurt others: No Plan Physical Exam Vital Signs: Vital Signs: Last Vital Signs Temp 98.8 F 12/29/24 08:23 Pulse 97 12/29/24 08:23 Resp 18 12/29/24 08:23 BP 132/86 12/29/24 08:23 Pulse Ox 99 12/29/24 08:23 O2 Del Method Room Air 12/29/24 08:23 BMI result Body Mass Index 23.7 Appearance: Alert. Oriented X3. No acute distress. HEENT: normal inspection CVS: Normal heart rate and rhythm. Pulses normal. Respiratory: No respiratory distress. Skin: Skin warm and dry. Normal skin color. Normal skin turgor. No rashes. Extremities: superficial abrasion on the left palm. no gross deformity or significant swelling of the left hand, wrist, forearm or elbow. FROM of the left wrist. mildly tender middle portion of the dorsal forearm. nontender lateral and medial epicondyles of the elbow. pain with full flexion of the elbow. nontender left humerus and FROM of the left shoulder. 1+ radial pulse. Neuro: Oriented X 3. No motor deficit. No sensory deficit. Steady gait Medications Administered Discontinued Medications Generic Name Dose Route Start Last Admin Trade Name Freq PRN Reason Stop Dose Admin Ibuprofen 600 mg 12/29/24 08:49 12/29/24 09:12 Ibuprofen 600 Mg Tablet PO 12/29/24 08:50 600 mg ONCE ONE Administration Medical Decision Making Medical Decision Making [facility] Narrative: 39 yo right hand dominant male presents to the ER w/ left forearm pain radiating up into the left elbow s/p FOOSH. no gross deformity on exam. FROM and some pain upon flexion of the elbow. no point tenderness. NV intact distally XR's ordered. minimally displaced radial head fx noted, sail sign. posterior long arm splint applied. patient counseled on dx and management in cluding follow up with orthopedics. Differential Diagnosis Differential Diagnoses: The differential diagnosis associated with the presenta tion includes wrist fracutre, forearm fracture, elbow fracture, ligamentous injury, contusion Independent Interpretation I performed an independent interpretation of an: Plain X-Ray Interpretation: radial head fx noted w/ sail sign Radiology Impression Discussion of test interpretation with radiology: I have reviewed the radiologist's reading. Radiologist Impression: XR/XR forearm LT 2V IMPRESSION: 1. Intra-articular radial head fracture, minimally displaced. Elbow joint effusion. 2. No fracture or dislocation within the wrist. External Record Review External record reviewed: Outpatient record, Prior outpatient labs and Prior outpatient radiology Prescription Management I considered prescription management with: Pain Medication Procedures Orthopedic Splinting/Casting Injury #1: Side: left Upper Extremity Injury Location: elbow Upper Extremity Immobilizer: posterior splint Critical Care Time Critical Care Time Critical Care Time: No Discharge Plan Discharge Clinical Impression: Closed fracture of radial head Qualifiers: Encounter type: initial encounter Fracture alignment: nondisplaced Laterality: left Qualified Code(s): S52.125A - Nondisplaced fracture of head of left radius, initial encounter for closed fracture Patient Disposition: Home, Self-Care Instructions: Elbow Fracture (ED) Additional Instructions: Wear the applied splint until you are seen by Orthopedics for further evaluation and treatment. call for an appoint. name and number below Do not get the splint wet and do not remove it. Elevate your arm when possible Take alternating doses of motrion and tylenol for pain If you develop new or worsening symptoms call 911 or come back to the ER for further evaluation. XR/XR forearm LT 2V IMPRESSION: 1. Intra-articular radial head fracture, minimally displaced. Elbow joint effusion. 2. No fracture or dislocation within the wrist. Prescriptions: No Action aripiprazole 5 mg tablet 5 mg PO BEDTIME Qty: 14 0RF allopurinol 300 mg tablet 300 mg PO DAILY Patient Comments: Patient has not started this medication. Reports incidence of gout two times a year on average. amantadine HCl 100 mg tablet See Rx Instructions .ROUTE .COMPLEX Qty: 30 0RF Rx Instructions: start 1/2 tablet daily for 4 days then increase to 1/2 tablet twice daily for 4 days then increase to 1 tablet twice daily guanfacine 1 mg tablet extended release 24 hr 1 mg PO DAILY Qty: 30 0RF Referrals: [facility] [place] Orthopedic Surgeons [Provider Group] (XR/XR forearm LT 2V IMPRESSION: 1. Intra-articular radial head fracture, minimally displaced. Elbow joint effusion. 2. No fracture or dislocation within the wrist.) Alan Peters MD [Primary Care Provider] - Print Language: Japanese
[2024-12-29] MEDS: Ibuprofen 600 MG TABLET PO (09:12)
[2024-12-29 10:19] VITALS: BP 132/86; PULSE 97; RESP 18; TEMP 37.1; O2SAT 99
== END 2024-12-29 10:23 | disposition home or self-care (01) ==
PROVIDERS: Emergency Provider Emergency Medicine; PCP Pediatrics
DX: S52.125A Nondisplaced fracture of head of left radius, initial encounter for closed fracture (principal); M79.602 Pain in left arm; M25.532 Pain in left wrist; W10.9XXA Fall (on) (from) unspecified stairs and steps, initial encounter; Y93.9 Activity, unspecified; Y92.009 Unspecified place in unspecified non-institutional (private) residence as the place of occurrence of the external cause; Y99.8 Other external cause status
CPT/HCPCS: 29105; 73060; 73090; 73100; 99283; 99284

== ENCOUNTER → 2024-12-29 08:35 | Outpatient (BNV) | payer OTHER, SELFPAY | PROVIDERS: Emergency Provider Emergency Medicine; PCP Pediatrics; Visit Provider Radiology Diagnostic Radiology | DX: M79.642 Pain in left hand (principal); M79.602 Pain in left arm | CPT/HCPCS: 73060; 73090; 73100 ==

== ENCOUNTER 2025-01-06 08:55 | Outpatient (REF) | payer OTHER, SELFPAY ==
--- NOTE | ~2025-01-06 | XR_ITS ---
EXAMINATION: XR ELBOW 3 VIEWS LEFT HISTORY: M25.522 - Pain in left elbow COMPARISON: Comparison is made with the prior examination of the left humerus dated 12/29/2024. FINDINGS: Four views of the left elbow are submitted. Osseous mineralization is normal. Again seen is a depressed fracture of the radial head with approximately 3 mm depression. The joint spaces are preserved. There is a persistent joint effusion. XR/XR elbow LT min 3V IMPRESSION: Depressed fracture of the radial head as described. Electronically signed by: Elpidio Chinchilla MD 01/06/2025 04:06 PM [facility]
== END 2025-01-06 08:56 | disposition home or self-care (01) ==
LOC: HO.HOSX 08:55
PROVIDERS: Visit Provider Physician Assistant
DX: S52.122A Displaced fracture of head of left radius, initial encounter for closed fracture (principal)
CPT/HCPCS: 73080

== ENCOUNTER 2025-01-06 13:32 | Outpatient (AMB) | payer OTHER, SELFPAY ==
[2025-01-06 13:49] VITALS: BMI 23.7
--- NOTE | 2025-01-06 13:49 | A.OFFVIS_ITS ---
Vital Signs 01/06/25 13:49 Height 6 ft 2 in Weight 185 lb BMI 23.7 Intake Visit Reasons: FC-LT radial head fx, DOI 12/29/24 Intake Note: Yuniel 39 right hand dominant male presents today for a new patient visit s/p ED visit from 12/29/24. States he slipped and fell on the bottom steps of his driveway. He fell on an outstretched hand on his left side. Seen in ED same day where he was told he has a fracture, he was splinted and was given a sling. 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 Denies numbness or tingling in fingers. He has some swelling that has improved since date of injury. Splint removed and xrays updated. Allergies aspirin [ASPIRIN] Allergy (Unknown, Verified 01/06/25 13:53) UNKNOWN penicillin V Allergy (Unknown, Verified 01/06/25 13:53) Unknown Penicillins [PENICILLINS] Allergy (Unknown, Verified 01/06/25 13:53) RASH Medication List - Last Reconciled 01/12/25 by Julia Milton PA-C allopurinol 300 mg PO DAILY HPI HPI FC-LT radial head fx, DOI 12/29/24: Details: 39-year-old gentleman presents to the office today for an injury he sustained to his left elbow. Date of injury 12/29/2024. He states he fell in his driveway on ice and landed on his elbow. Was seen in the emergency department the same day where he was x-rayed which showed a radial head fracture. Placed in a sling and referred to our office for ortho eval. [facility] Medical History (Updated 01/20/25 @ 08:23 by Julia Milton PA-C) History of gout Ruptured spleen Surgical History (Updated 02/17/24 @ 12:00 by Lorrie Morales RN) H/O kidney removal Social History (Updated 01/06/25 @ 13:55 by PARVIZ Perez) Household Members: None Patient Tobacco Use Status: Former Tobacco user Current occupation: insurance examining clerk/ rt hand Review of Systems Const All systems reviewed & are unremarkable except as noted in HPI and below Physical Exam Vital Signs: BMI result Body Mass Index 23.7 Const General: cooperative and no acute distress Orientation/consciousness: patient oriented x3 Resp Effort & Inspection: normal respiratory effort and able to speak in complete sentences Cardio Peripheral pulses: Peripheral pulses 2+ throughout Neuro General: patient oriented x3 Extrem Other: Left elbow skin intact, no open wounds. Mild tenderness over the radial head. No pain over the olecranon. No difficulty with flexion or extension, mild discomfort with supination / pronation. No pain along the distal radius or proximal humerus. Sensation and peripheral pulses present. Office Procedures AMB Fracture Care Fracture Billing Code: Fracture Billing Code Results Reviewed Results Reviewed: XR elbow LT min 3V 01/06/25 IMPRESSION: Depressed fracture of the radial head as described. Assessment & Plan Assessment & Plan (1) Left radial head fracture: Code(s): S52.122A - Displaced fracture of head of left radius, initial encounter for closed fracture Category: Medical Plan: Explain the extent of the injury to the patient. I recommend he discontinue the use of the sling. He will begin a course of occupational therapy to work on gentle range of motion. No lifting pushing pulling or carrying greater than a cell phone with the left upper extremity. Can perform gentle range of motion but no supination pronation. No forceful grasping motions. He will see me back in 4-6 weeks with x-rays sooner if needed. Orders: Orders XR elbow LT min 3V 01/06/25 M25.522 - Pain in left elbow OT Evaluation and Treatment 01/06/25 S52.125A - Nondisplaced fracture of head of left radius, initial encounter for closed fracture Medications: Discontinued aripiprazole Discontinued Reason: No Longer Medically Relevant 5 mg PO BEDTIME 14 tabs 0RF as directed amantadine HCl Discontinued Reason: Patient Completed Course start 1/2 tablet daily for 4 days then increase to 1/2 tablet twice daily for 4 days then increase to 1 tablet twice daily 30 tabs 0RF guanfacine ER Discontinued Reason: Patient Completed Course 1 mg PO DAILY 30 tabs 0RF as directed Coding Level of Care Code New Pt Level 3 (01609) Complex EM visit Add On G2211 Diagnoses Left radial head fracture S52.122A CPT Codes Fracture Care - Fracture Billing Code: Fracture Billing Code ([id number])
== END 2025-01-06 14:27 | disposition home or self-care (01) ==
PROVIDERS: PCP Pediatrics; Visit Provider Physician Assistant
DX: S52.122A Displaced fracture of head of left radius, initial encounter for closed fracture (principal)
CPT/HCPCS: 99203; G2211

== ENCOUNTER → 2025-01-06 13:33 | Outpatient (BNV) | payer OTHER, SELFPAY | PROVIDERS: Visit Provider Radiology Diagnostic Radiology | DX: M25.522 Pain in left elbow (principal) | CPT/HCPCS: 73080 ==

== ENCOUNTER 2025-02-03 08:18 | Outpatient (REF) | payer OTHER, SELFPAY ==
--- NOTE | ~2025-02-03 | XR_ITS ---
EXAMINATION: XR ELBOW 3 VIEWS LEFT HISTORY: M25.522 - Pain in left elbow COMPARISON: Comparison is made with the prior examination dated 01/06/2025. FINDINGS: Three views of the left elbow are submitted. Osseous mineralization is normal. Again seen is a depressed fracture of the radial head. The appearance is not significantly changed given differences in patient positioning. The fracture line remains visible. The remaining joint spaces are preserved. The soft tissues are unremarkable. XR/XR elbow LT min 3V IMPRESSION: Depressed fracture of the radial head without significant change. Electronically signed by: Elpidio Chinchilla MD 02/03/2025 10:32 AM EDT
== END 2025-02-03 08:19 | disposition home or self-care (01) ==
LOC: HO.HOSX 08:18
PROVIDERS: Visit Provider Physician Assistant
DX: M25.522 Pain in left elbow (principal); S52.125D Nondisplaced fracture of head of left radius, subsequent encounter for closed fracture with routine healing
CPT/HCPCS: 73080

== ENCOUNTER 2025-02-03 08:21 | Outpatient (AMB) | payer OTHER, SELFPAY ==
--- NOTE | 2025-02-03 08:30 | A.OFFVIS_ITS ---
Intake Visit Reasons: OV-4wk f.u Rt radial head fx w xrays Intake Note: Yuniel is a 39 year old right hand dominant male who presents today for a follow up of left radial head fracture, DOI 12/29/24. At his last visit patient was referred to OT. The use of the sling was discontinued. He was placed on the following restrictions: no lifting pushing pulling or carrying greater than a cell phone and no forceful grasping motions. Patient was advised he could perform gentle range of motion but no supination or pronation. Today patient reports that he believes OT is helping with his ROM, pt states he will get some pain occasionally but has improved since his last visit. Allergies aspirin [ASPIRIN] Allergy (Unknown, Verified 02/03/25 08:38) UNKNOWN penicillin V Allergy (Unknown, Verified 02/03/25 08:38) Unknown Penicillins [PENICILLINS] Allergy (Unknown, Verified 02/03/25 08:38) RASH Medication List - Last Reconciled 02/03/25 by Julia Milton PA-C No Known Home Meds HPI HPI OV-4wk f.u Rt radial head fx w xrays: Details: 39-year-old gentleman returns to the office today for a 4 week follow-up left radial head fracture . He states he has been working with occupational therapy for gentle range of motion. His pain has improved. He is working with restrictions. No concerns today. [facility] Medical History History of gout Ruptured spleen Surgical History H/O kidney removal Social History Household Members: None Patient Tobacco Use Status: Former Tobacco user Current occupation: director insurance/ rt hand Review of Systems Const All systems reviewed & are unremarkable except as noted in HPI and below Physical Exam Const General: cooperative and no acute distress Orientation/consciousness: patient oriented x3 Resp Effort & Inspection: normal respiratory effort and able to speak in complete sentences Cardio Peripheral pulses: Peripheral pulses 2+ throughout Neuro General: patient oriented x3 Extrem Other: Left elbow skin intact, no open wounds. Mild tenderness over the radial head. No pain over the olecranon. No difficulty with flexion or extension, mild discomfort with supination / pronation. No pain along the distal radius or proximal humerus. Sensation and peripheral pulses present. Results Reviewed Results Reviewed: X-rays of the left elbow obtained in the office today and reviewed by me show stable radial head fracture Assessment & Plan Assessment & Plan (1) Left radial head fracture: Code(s): S52.122A - Displaced fracture of head of left radius, initial encounter for closed fracture Category: Medical Qualifiers: Encounter type: subsequent encounter Fracture type: closed Fracture alignment: displaced Fracture healing: with routine healing Qualified Code(s): S52.122D - Displaced fracture of head of left radius, subsequent encounter for closed fracture with routine healing Plan: He will continue with occupational therapy progressing his range of motion supination pronation and he can progress to gentle strength as symptoms allow. He will continue his current work restrictions and see me back in 8 weeks with x-rays sooner if needed. Orders: Orders XR elbow LT min 3V Today M25.522 - Pain in left elbow OT Evaluation and Treatment Today S52.122A - Displaced fracture of head of left radius, initial encounter for closed fracture Coding Level of Care Code Global (59945) Diagnoses Closed displaced fracture of head of left radius with routine healing, subsequent encounter S52.122D Encounter type: subsequent encounter Fracture type: closed Fracture alignment: displaced Fracture healing: with routine healing
== END 2025-02-03 08:59 | disposition home or self-care (01) ==
LOC: HO.HOS 08:22
PROVIDERS: PCP Pediatrics; Visit Provider Physician Assistant
DX: S52.122D Displaced fracture of head of left radius, subsequent encounter for closed fracture with routine healing (principal)
CPT/HCPCS: 99213

== ENCOUNTER → 2025-02-03 08:24 | Outpatient (BNV) | payer OTHER, SELFPAY | PROVIDERS: Visit Provider Radiology Diagnostic Radiology | DX: S52.122A Displaced fracture of head of left radius, initial encounter for closed fracture (principal) | CPT/HCPCS: 73080 ==

== ENCOUNTER 2025-03-30 15:36 | Outpatient (RCR) | payer OTHER, SELFPAY ==
--- NOTE | 2025-01-24 10:10 | MHC.OT.OEV ---
[address] [phone] F: [phone] Occupational Therapy Evaluation Patient Name: Yuniel Aguilar Diagnosis: (L) Radial head fx Date of Onset: 12/29/23 Date of Surgery: Attending Provider: Julia Milton Prescribed Treatment: MD Follow Up Appointment: History of Current Condition: Patient is a 39 y/o male with no significant PMHx who sustained a fall on 12/29 from sipping on ice when stepping off the his front steps and placing his handout to brace himself which resulted in a radial head fx. He reports 5/10 constant pain at res that is achy and the pain can increase to an 8/10 during movement. He denies numbness/tingling. 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 He enjoys golfing, snow boarding and traveling. He reports difficulty with moving things, vacuuming, heaving house hold tasks, and taking care of children. Significant Medical History: Precautions/Contraindications: No lifting pushing pulling or carrying greater than a cell phone. Gentle range of motion but no supination pronation. No forceful grasping motions. 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 Current Level of Function and Occupation Self Care, Employment, Leisure: Works time motion analyst min (A) ADLs, mod (A) IADLs Sleep: He can't sleep on his side, but pain is not waking him up Driving: (I) Vision: Balance: Pain Assessment Pain Score: 5 Pain Scale Used: Numeric (0 - 10) Pain Location and Description: 5/10 at rest 8/10 with movement Achy Aggravating Factors: Alleviating Factors: Ibuprofin/ tylenol Skin and Soft Tissue Assessment Skin and Soft Tissue: Comments: Bruising around the olecranon process Nerve assessment Ulnar Nerve: Median Nerve: Radial Nerve: Comments: Sensory Assessment Temperature: Light Touch: Proprioception: Vibration: Comments: Edema Assessment Upper Extremity: Lower Extremity: Comments: mild edema present around elbow Dexterity Assessment Dexterity: Comments: Special Tests Comments: AROM(PROM) Strength Cervical Cervical Flexion: Cervical Extension: Cervical Lateral Flexion: Cervical Rotation: Comments: Shoulder Flexion: Extension: Abduction: Internal Rotation: External Rotation: Comments: WFL Flexion: Extension: Abduction: Internal Rotation: External Rotation: Comments: NOT TESTED AT THIS TIME Elbow Flexion: 129*/ 155* Extension: 9*/0 Pronation: N/A Supination: N/A Comments: NO PRONATION or SUPINATION AT THIS TIME Flexion: Extension: Pronation: Supination: Comments: NOT TESTED Wrist Flexion: 90* Extension: 80* Ulnar Deviation: Radial Deviation: Comments: Flexion: Extension: Ulnar Deviation: Radial Deviation: Comments: NOT TESTED AT THIS TIME Thumb Thumb CMC Flexion: Thumb MCP Flexion: Thumb IP Flexion: Radial Abduction: Palmar Abduction: [place] (Kapandji 0-10): Comments: WFL Digits Index MCP: PIP: DIP: Long MCP: PIP: DIP: Ring MCP: PIP: DIP: Small MCP: PIP: DIP: Comments: CAN MAKE A COMPOSITE FIST Gross Grasp: Lateral Pinch: Two-Point Pinch: Three-Jaw Momo: Comments: Patient Education Primary Language: German 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 Patient demonstrates Patient verbalizes Barriers to Learning: None Readiness for Learning: Accepting Who was educated? Patient Comments: Plan of Care Assessment: Based on initial evaluation patient is s/p 4 weeks radial head fx presenting with impaired ROM, impaired strength, pain, edema, bruising and impaired performance during self care tasks. Quick DASH score = 59.1 % indicating patient's perceived UE impairment during self care tasks. At this time patient's CLOF is min (A) ADLS, Mod (A) IADLs. Due to the documented impairments it is recommended that patient receive skilled OT in order to return to his PLOF to be able to care for his 2 small children and to return to his leisure activities. As patient in acute healing phase OT will focus treatment on gentle ROM and then progress patient per protocol. Patient is motivated and eager to participate in skilled therapy. Thank you for your referral. STG Duration: 2 weeks Short Term Goals: Patient will increase (L) active elbow flexion by 20* Patient will increase (L) active elbow extension by 10* Patient will report decreased pain from 5/10 to 3/10 LTG Duration: 4 weeks Fpc Goals: Patient will be (I) HEP Patient will decrease Quick DASH score by at least 20% indicating overall functional improvement of the UE Frequency and Duration: The patient will be seen 2x a week for 4 weeks Treatment Plan: Therapeutic Exercise Therapeutic Activity Home Exercise Program Splinting Patient Education Edema Control ADL Training Ultrasound NMES Iontophoresis Paraffin Fluidotherapy MHP Cold Packs Joint Mobilization Soft Tissue Mobilization Kinesiotaping Other (see comments) Skilled OT eval and treat Electronically Signed By: Linda Loza OTR/L, CLT Reviewed/agree with student documentation: Therapist: Please sign and return to therapist, Thank you for your referral.
--- NOTE | 2025-03-07 15:54 | MHC.OT.OP ---
[address] [phone] F: [phone] Occupational Therapy Progress Note Patient Name: Yuniel Aguilar Diagnosis: (L) Radial head fx Date of Surgery: Date of Evaluation: 01/23/25 Treatments to Date: 9 Cancellations to Date: No Shows to Date: Subjective: I was on time. Pain Score: 0 Pain Location: (L)elbow Objective Measures: Status: Progressing Assessment: S/p 11 weeks; Patient was seen for skilled OT progress note, at this time patient is progressing towards his goals. Skilled OT will continue with services to increase strength, once patient is at baseline patient will be d/c from therapy. Short Term Goals: Patient will increase (L) active elbow flexion by 20*- PROGRESSIN Patient will increase (L) active elbow extension by 10* - MET Patient will report decreased pain from 5/10 to 3/10 - MET [facility] Representative Goals: Patient will be (I) HEP - PROGRESSING Patient will decrease Quick DASH score by at least 20% indicating overall functional improvement of the UE- MET Frequency and Duration: The patient will be seen 2x a week for 4 weeks Treatment Plan: Therapeutic Exercise Therapeutic Activity Home Exercise Program Splinting Patient Education Desensitization/Sensory Re-ed Edema Control ADL Training Ultrasound NMES Iontophoresis Paraffin Fluidotherapy MHP Cold Packs Joint Mobilization Soft Tissue Mobilization Kinesiotaping Other (see comments) Skilled OT eval and treat Electronically Signed By: KENNY Mireles/Chinyere, CLT Reviewed/agree with student documentation: Therapist:
--- NOTE | 2025-03-30 16:04 | MHC.OT.DC ---
[address] [phone] F: [phone] Occupational Therapy Discharge Note Patient Name: Yuniel Aguilar Provider: Julai Milton Diagnosis: (L) Radial head fx Date of Surgery: Date of Evaluation: 01/23/25 Date of Discharge: Treatments to Date: 14 Cancellations to Date: No Shows to Date: Discharge Status: Achieved Goals Improved Function Independent with HEP Discharge Summary: Patient is d/c from skilled OT as patient has achieved all of his goals and has achieved his PLOF. Patient was a pleasure to work with, thank you for your referral. Electronically Signed By: KENNY Mireles/Chinyere, CLT Reviewed/agree with student documentation: Therapist: Please Sign and return to therapist, thank you for your referral.
== END 2025-05-16 14:26 | disposition home or self-care (01) ==
LOC: HO.OT 15:36
PROVIDERS: PCP Pediatrics; Visit Provider Physician Assistant
DX: S52.122D Displaced fracture of head of left radius, subsequent encounter for closed fracture with routine healing (principal)
CPT/HCPCS: 97110; 97140; 97165; 97535

== ENCOUNTER 2025-03-31 08:31 | Outpatient (AMB) | payer OTHER, SELFPAY ==
--- NOTE | 2025-03-31 08:41 | MHC.OFFVIS ---
Vital Signs 03/31/25 08:46 Height 6 ft 2 in Weight 185 lb BMI 23.7 Intake Visit Reasons: OV- left radial head fracture, DOI 12/29/24 Intake Note: Yuniel is a 39 year old right hand dominant male who presents today for a follow up of left radial head fracture, DOI 12/29/24. At patient last visit he was instructed to continue working with occupational therapy and to continue his current work restrictions. Today patient reports he is doing well. Patient denies numbness or tingling. 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 Patient is not taking anything for pain at this time. Allergies aspirin [ASPIRIN] Allergy (Unknown, Verified 03/31/25 08:46) UNKNOWN penicillin V Allergy (Unknown, Verified 03/31/25 08:46) Unknown Penicillins [PENICILLINS] Allergy (Unknown, Verified 03/31/25 08:46) RASH HPI HPI OV- left radial head fracture, DOI 12/29/24: Details: 39-year-old gentleman returns to the office today approximately 3 months status post left radial head fracture 12/29/2024. He has completed occupational therapy and continues to increase activities as tolerated. He has no concerns today. [facility] Medical History History of gout Ruptured spleen Surgical History H/O kidney removal Social History Household Members: None Patient Tobacco Use Status: Former Tobacco user Current occupation: field insurance sales manager/ rt hand Review of Systems Const All systems reviewed & are unremarkable except as noted in HPI and below Physical Exam Vital Signs: BMI result Body Mass Index 23.7 Const General: cooperative and no acute distress Orientation/consciousness: patient oriented x3 Resp Effort & Inspection: normal respiratory effort and able to speak in complete sentences Cardio Peripheral pulses: Peripheral pulses 2+ throughout Neuro General: patient oriented x3 Extrem Other: Left elbow skin intact, no open wounds. No direct tenderness over the radial head. No pain over the olecranon. No difficulty with flexion or extension, mild discomfort with supination / pronation. No pain along the distal radius or proximal humerus. Sensation and peripheral pulses present. Results Reviewed Results Reviewed: X-rays of the left elbow obtained in the office today and reviewed by me show stable radial head fracture with interval healing. Assessment & Plan Assessment & Plan (1) Left radial head fracture: Code(s): S52.122A - Displaced fracture of head of left radius, initial encounter for closed fracture Category: Medical Qualifiers: Encounter type: subsequent encounter Fracture type: closed Fracture alignment: displaced Fracture healing: with routine healing Qualified Code(s): S52.122D - Displaced fracture of head of left radius, subsequent encounter for closed fracture with routine healing Plan: Patient will continue to increase activities as tolerated. I encouraged him to continue with his home exercise program. Will participate in golfing activities I did stress the importance of caution with impact as this may cause some discomfort and swelling. He can take ibuprofen/Motrin occasionally for this. If there is any worsening symptoms or limitations in function or he has has concerns he can contact our office otherwise follow up as needed. Orders: Orders XR elbow LT min 3V Today M25.522 - Pain in left elbow Coding Level of Care Code Est Pt Level 3 (66438) Complex EM visit Add On G2211 Diagnoses Closed displaced fracture of head of left radius with routine healing, subsequent encounter S52.122D Encounter type: subsequent encounter Fracture type: closed Fracture alignment: displaced Fracture healing: with routine healing
[2025-03-31 08:46] VITALS: BMI 23.7
== END 2025-03-31 09:02 | disposition home or self-care (01) ==
LOC: HO.HOS 08:32
PROVIDERS: PCP Pediatrics; Visit Provider Physician Assistant
DX: S52.122D Displaced fracture of head of left radius, subsequent encounter for closed fracture with routine healing (principal)
CPT/HCPCS: 99213; G2211

== ENCOUNTER → 2025-03-31 08:35 | Outpatient (BNV) | payer OTHER, SELFPAY | PROVIDERS: Visit Provider Radiology Diagnostic Radiology | DX: S52.122A Displaced fracture of head of left radius, initial encounter for closed fracture (principal) | CPT/HCPCS: 73080 ==

== ENCOUNTER 2025-03-31 10:14 | Outpatient (REF) | payer OTHER, SELFPAY ==
--- NOTE | ~2025-03-31 | XR_ITS ---
EXAMINATION: XR ELBOW 3 VIEWS LEFT HISTORY: M25.522 - Pain in left elbow COMPARISON: Comparison is made with the prior examination dated 02/03/2025. FINDINGS: Three views of the left elbow are submitted. Osseous mineralization is normal. Again seen is a depressed fracture of the radial head which is not significantly changed in appearance. The joint spaces are preserved. There is a persistent joint effusion. XR/XR elbow LT min 3V IMPRESSION: Depressed fracture of the radial head without significant change. Electronically signed by: Elpidio Chinchilla MD 03/31/2025 08:53 AM EDT
== END 2025-03-31 10:15 | disposition home or self-care (01) ==
LOC: HO.HOSX 10:14
PROVIDERS: Visit Provider Physician Assistant
DX: M25.522 Pain in left elbow (principal)
CPT/HCPCS: 73080